=== PATIENT | female | born 1945 | race Caucasian/White ===

== ENCOUNTER 2019-05-02 02:32 | Emergency (ER) | payer OTHER, BC ==
--- NOTE | 2019-05-02 02:38 | PDOC ---
History of Present Illness - General Chief Complaint: Lightheaded Stated Complaint: DIZZY Time Seen by Provider: 05/02/19 02:37 - History of Present Illness Initial Comments: 05/02/19 03:21 This 73-year-old woman with HTN/HLD/anemia/hypothyroidism presents with few hour history of vertigo and mild nausea. Patient first felt dizziness and she was sitting watching television few hours prior to presentation. Other than the mild nausea, patient feels mildly flushed. The patient had just returned from hospital where her [id number] is a patient ; [id number]-[id number]-cyi has terminal cancer and the patient has been staying with her continuously for several days. Patient herself had recent upper respiratory infection with postnasal drip. No previous history of vertigo/sinusitis. No difficulty speaking/word recall/facial weakness/extremity weakness. Past History - Past Medical History Allergies/Adverse Reactions: Allergies Allergy/AdvReac Type Severity Reaction Status Date / Time grass pollen-perennial rye, Allergy Verified 01/17/13 08:04 standar [grass poll-perennial rye,std] Home Medications: Ambulatory Orders Atorvastatin Ca [Lipitor -] 20 mg PO DAILY 12/27/12 Cholecalciferol (Vitamin D3) [Vitamin D3] 1,000 iu PO DAILY 12/27/12 Cinnamon Bark [Cinnamon] 500 mg PO DAILY 12/27/12 Cranberry 400 mg PO DAILY 12/27/12 Diltiazem HCl [Cartia Xt] 240 mg PO DAILY 12/27/12 Docosahexanoic Acid/Epa [Fish Oil Softgel] 1 cap PO DAILY 12/27/12 Fluvoxamine Maleate [Luvox] 100 mg PO DAILY 12/27/12 Levothyroxine [Synthroid] 75 mcg PO DAILY 12/27/12 Mometasone Furoate [Asmanex] 220 mcg IH DAILY 12/27/12 Montelukast Na [Singulair] 10 mg PO HS 12/27/12 Multivitamin [Multi-Day Vitamins] 1 tab PO DAILY 12/27/12 Telmisartan [Micardis] 40 mg PO DAILY 12/27/12 Meclizine HCl [Antivert -] 25 mg PO TID PRN #20 tablet 05/02/19 Ondansetron [Zofran *Odt*] 4 mg SL BID PRN #7 od.tablet 05/02/19 Anemia: Yes (THALASSEMIA [facility]) Asthma: Yes (DX 2003-SEASONAL) Cancer: No Cardiac Disorders: Yes (MVP) CVA: No COPD: No CHF: No Dementia: No Diabetes: No GI Disorders: No Disorders: No HTN: Yes (DX 1987) Hypercholesterolemia: Yes (DX 1992) Liver Disease: No Seizures: No Thyroid Disease: Yes (HYPOTHYROIDISM-DX 2002) - Surgical History Abdominal Surgery: No Appendectomy: No Cardiac Surgery: Yes (LEFT EYE 12/2012) Cholecystectomy: No Lung Surgery: No Neurologic Surgery: No Orthopedic Surgery: No - Psycho Social/Smoking Cessation Hx Smoking History: Never smoked Have you smoked in the past 12 months: No Hx Alcohol Use: No Drug/Substance Use Hx: No Substance Use Type: None Hx Substance Use Treatment: No Review of Systems - Review of Systems Able to Perform ROS?: Yes Comments:: 12 point review of systems is negative except for what is noted in the history of present illness *Physical Exam - Physical Exam GENERAL: Adult female, alert and oriented x3, in mild distress secondary to vertigo HEAD: Normal with no signs of trauma. EYES: PERRLA, EOMI, sclera anicteric, conjunctiva clear. ENT: Ears normal, nares patent, oropharynx clear without exudates. Dry mucous membranes. NECK: Normal range of motion, supple without lymphadenopathy, JVD, or masses. LUNGS: Breath sounds equal, clear to auscultation bilaterally. No wheezes, and no crackles. HEART:Regular rate and rhythm, normal S1 and S2 without murmur, rub or gallop. ABDOMEN:.normal bowel sounds No guarding,tenderness or rebound.No masses No distention. EXTREMITIES: Normal range of motion, no edema. No clubbing or cyanosis. No erythema, or tenderness. NEUROLOGICAL: Cranial nerves II through XII grossly intact. Normal speech. No focal neurological deficits. MUSCULOSKELETAL: Back non-tender to palpation, no CVA tenderness SKIN: Warm, Dry, normal turgor, no rashes or lesions noted. Medical Decision Making - Medical Decision Making Twelve-lead electrocardiogram performed: Normal sinus rhythm at 62 bpm; axis, intervals and waveforms are all normal. No evidence of acute ST or T wave abnormalities. No evidence of acute cardiac arrhythmia Patient given meclizine 50 mg by mouth. Patient reports improvement in vertigo sensation. She continues to have mild nausea. Zofran ODT 4 mg given After Zofran ODT administered, the patient reports marked improvement in lightheadedness/dizziness sensation and and nausea. Patient feels ready to be discharged. She is able to ambulate without assistance and has no further nausea. Patient should follow-up with her doctor within the next 3 days. Prescriptions for meclizine 25 mg up to 3 times a day as needed for dizziness/vertigo sent to her pharmacy. Also Zofran ODT 4 mg up to twice a day (#10) as needed for nausea /vomiting sent to her pharmacy Discharge - Discharge Information Problems reviewed: Yes Clinical Impression/Diagnosis: Vertigo Condition: Stable Disposition: HOME - Additional Discharge Information Prescriptions: Meclizine HCl [Antivert -] 25 mg PO TID PRN #20 tablet PRN Reason: Vertigo Ondansetron [Zofran *Odt*] 4 mg SL BID PRN #7 od.tablet PRN Reason: Nausea - Follow up/Referral Referrals: Leonor Agudelo MD [Primary Care Provider] - 3 days - Patient Discharge Instructions Patient Printed Discharge Instructions: Vertigo Additional Instructions: Rest; drink plenty of fluids Meclizine 25 mg up to 3 times a day as needed for dizziness Zofran ODT 4 mg up to twice a day as needed for nausea Return to ER if you have persistent severe lightheadedness/dizziness or you have vomiting Follow-up with your general doctor within the next 3 to 4 days - Post Discharge Activity
[2019-05-02 02:41] VITALS: BP 152/74; PULSE 66; TEMP 97.9; BMI 28.9
[2019-05-02] MEDS ORDERED: MECLIZINE HCL 25 MG TABLET (FP) PO ONE (02:48)
[2019-05-02] MEDS ORDERED: MECLIZINE HCL 25 MG TABLET (FP) ONE (02:49)
[2019-05-02] MEDS ORDERED: ONDANSETRON *ODT* 4 MG TABLET ONE (03:20)
[2019-05-02] MEDS ORDERED: ONDANSETRON *ODT* 4 MG TABLET SL ONE (03:20)
--- NOTE | 2019-05-02 11:12 | EKG ---
Test Reason : Blood Pressure : / mmHG Vent. Rate : 062 BPM Atrial Rate : 062 BPM P-R Int : 160 ms QRS Dur : 090 ms QT Int : 430 ms P-R-T Axes : 003 001 052 degrees QTc Int : 436 ms NORMAL SINUS RHYTHM NORMAL ECG WHEN COMPARED WITH ECG OF 03-JUL-2000 13:52, NO SIGNIFICANT CHANGE WAS FOUND Confirmed by TIM JIANG MD ([id number]) on 05/02/2019 11:12:10 AM Referred By: JUANA CASTRO Confirmed By:TIM JIANG MD
== END 2019-05-02 03:40 | disposition home or self-care (01) ==
LOC: FER 02:32
DX: R42 Dizziness and giddiness (principal); E03.9 Hypothyroidism, unspecified; I10 Essential (primary) hypertension; I34.1 Nonrheumatic mitral (valve) prolapse; J45.998 Other asthma
CPT/HCPCS: 93005; 99282-25; Q0162

== ENCOUNTER → 2021-04-01 | Day surgery (SDC) | payer OTHER, BC | END | disposition home or self-care (01) | LOC: JRADUS-SUR 10:32 | PROVIDERS: ATTEND Nurse Practitioner Family | PROC: 0H9U3ZX Drainage of Left Breast, Percutaneous Approach, Diagnostic (ICD-10-PCS; principal; 2021-04-01) | DX: N60.02 Solitary cyst of left breast (principal) | CPT/HCPCS: 19000; 76942-TC; 77065-TC; 88173 ==

== ENCOUNTER 2023-08-31 12:15 | Emergency (ER) | payer OTHER, BC ==
[2023-08-31 12:35] VITALS: BMI 29.2
[2023-08-31 13:37] LABS: BASO % 0.3 % (0-2.0); EOS % 0.4 % (0-4.5); HEMATOCRIT 32.9 % (32.4-45.2); HEMOGLOBIN 10.7 GM/dL (10.7-15.3); LYMPH % 13.3 % (8-40); MCH 21.3 pg (25.7-33.7); MCHC 32.4 g/dl (32.0-36.0); MEAN CELL VOLUME 65.9 fl (80-96); MEAN PLT VOLUME 9.3 fl (7.5-11.1); MONO % 5.7 % (3.8-10.2); NEUT % 80.3 % (42.8-82.8); PLATELET COUNT 208 10^3/uL (134-434)
[2023-08-31 13:44] LABS: INR 1.02 (0.83-1.09); PROTHROMBIN TIME (PATIENT) 11.5 SEC (9.7-13.0)
[2023-08-31 13:52] LABS: ACTIVATED PTT 32.1 SECONDS (25.2-36.5)
[2023-08-31 14:19] LABS: POTASSIUM 4.3 mmol/L (3.5-5.1)
[2023-08-31 14:20] LABS: ANISOCYTOSIS 1+
[2023-08-31 14:22] LABS: BLOOD UREA NITROGEN 29.3 mg/dL (7-18)
[2023-08-31 14:25] LABS: CREATININE 0.9 mg/dL (0.55-1.3)
[2023-08-31 14:26] LABS: BILIRUBIN,TOTAL 0.6 mg/dL (0.2-1)
[2023-08-31 14:27] LABS: TOT PROT 7.3 g/dl (6.4-8.2)
[2023-08-31 14:30] LABS: N-TERMINAL BNP 1919.4 pg/ml (5-450)
[2023-08-31] MEDS: DRONEDARONE HCL 400 MG TAB (FP) PO SCH (15:45)
[2023-08-31 18:10] VITALS: BP 128/67; PULSE 72; RESP 17; TEMP 98.6
== END 2023-08-31 18:10 | disposition home or self-care (01) ==
LOC: JER 12:15
DX: I49.9 Cardiac arrhythmia, unspecified (principal); Z20.822 Contact with and (suspected) exposure to COVID-19
CPT/HCPCS: 0241U-QW; 36415; 71045-TC-FY; 80053; 83880; 84484; 85025; 85379; 85610; 85730; 93005; 93010; 99291

== ENCOUNTER → 2024-02-08 | Day surgery (SDC) | payer OTHER, BC | END | disposition home or self-care (01) | LOC: JRADUS-SUR 08:52 | PROVIDERS: ATTEND Nurse Practitioner Family | PROC: 0H9T3ZX Drainage of Right Breast, Percutaneous Approach, Diagnostic (ICD-10-PCS; principal; 2024-02-08) | DX: N60.01 Solitary cyst of right breast (principal) | CPT/HCPCS: 19000; 76942-TC; 77065-TC ==